=== PATIENT | male | born 1995 | race Hispanic/Latino ===

== ENCOUNTER 2019-06-05 15:15 | Emergency (ER) | payer OTHER ==
--- NOTE | 2019-06-05 15:51 | Emergency Department Report ---
Blank Doc - Documentation Documentation: Sharp pain in lower with rt leg pain. Injury playing soccer . Hit lower back on [place] post. This happened 4 days ago . Denies urinary symptoms, no hematuria. no abdominal pain,fever or chills + TTP l spine. TEMP 99.8 Xray Lspine, UA
--- NOTE | 2019-06-05 16:37 | XRay Report ---
XR spine lumbosacral 2-3V INDICATION / CLINICAL INFORMATION: Low back injury with pain. COMPARISON: None available. FINDINGS: BONES/JOINT(S): No vertebral fracture. No significant degenerative changes. Normal alignment. SOFT TISSUES: No significant abnormality. ADDITIONAL FINDINGS: None. Signer Name: Donte Núñez MD Signed: 06/05/2019 4:33 PM Workstation Name: [id number]
[2019-06-05] MEDS ORDERED: FLEXERIL PO ONE (17:47)
[2019-06-05] MEDS ORDERED: IBUPROFEN PO ONE (17:47)
--- NOTE | 2019-06-05 17:52 | Emergency Department Report ---
ED Back Pain/Injury HPI - General Chief Complaint: Back Pain/Injury Stated Complaint: LOW BACK PAIN Time Seen by Provider: 06/05/19 15:47 Source: patient Limitations: No Limitations - History of Present Illness Initial Comments: Patient is a 23-year-old male presents the emergency room with complaints of middle back pain began on 06/01/19. He states he was playing soccer and went up for a header and fell down and hit his back against the goal post. He denies any numbness, weakness, bowel or bladder incontinence, saddle numbness. He states he has been ambulatory since the incident. He states when he is ambulatory does feel discomfort in his back. He denies any previous back injury. he does not report any urinary sx, hitting his head, LOC, or any other injury. He denies any past medical history or allergies to medications. - Related Data Previous Rx's Medication Instructions Recorded Last Taken Type Cyclobenzaprine [Flexeril 10 MG 10 mg PO QHS PRN #10 tablet 06/05/19 Unknown Rx TAB] Ibuprofen [Motrin 600 MG tab] 600 mg PO Q8H PRN #14 tablet 06/05/19 Unknown Rx Allergies Allergy/AdvReac Type Severity Reaction Status Date / Time latex Allergy Rash Verified 06/05/19 15:18 ED Review of Systems ROS: Stated complaint: LOW BACK PAIN Other details as noted in HPI Comment: All other systems reviewed and negative ED Past Medical Hx - Past Medical History Previous Medical History?: No - Surgical History Past Surgical History?: No - Social History Smoking Status: Never Smoker Substance Use Type: Alcohol - Medications Home Medications: Home Medications Medication Instructions Recorded Confirmed Last Taken Type Cyclobenzaprine [Flexeril 10 MG 10 mg PO QHS PRN #10 tablet 06/05/19 Unknown Rx TAB] Ibuprofen [Motrin 600 MG tab] 600 mg PO Q8H PRN #14 tablet 06/05/19 Unknown Rx ED Physical Exam - General Limitations: No Limitations General appearance: alert, in no apparent distress - Head Head exam: Present: atraumatic, normocephalic - Eye Eye exam: Present: normal appearance, PERRL - ENT ENT exam: Present: mucous membranes moist - Neck Neck exam: Present: normal inspection, full ROM. Absent: tenderness - Respiratory Respiratory exam: Present: normal lung sounds bilaterally. Absent: respiratory distress, wheezes, rales, rhonchi, stridor, chest wall tenderness, accessory muscle use, decreased breath sounds, prolonged expiratory - Cardiovascular Cardiovascular Exam: Present: regular rate, normal rhythm, normal heart sounds. Absent: systolic murmur, diastolic murmur, rubs, gallop - Back Exam Back exam: Present: normal inspection, full ROM, paraspinal tenderness (left sided T-spine paraspinal muscular TTP, no midline C-spine, T-spine, or L-spine tenderness to palpation, no step offs, no deformities). 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 Absent: motor sensory deficit - Psychiatric Psychiatric exam: Present: normal affect, normal mood - Skin Skin exam: Present: warm, dry, intact ED Course Vital Signs 06/05/19 06/05/19 15:41 18:15 Temperature 99.8 F H Pulse Rate 80 70 Respiratory 20 16 Rate Blood Pressure 131/65 Blood Pressure 125/80 [Left] O2 Sat by Pulse 96 99 Oximetry ED Medical Decision Making - Radiology Data Radiology results: report reviewed cc: KALEN ROQUE Fluoro Time In Minutes: XR spine lumbosacral 2-3V INDICATION / CLINICAL INFORMATION: Low back injury with pain. COMPARISON: None available. FINDINGS: BONES/JOINT(S): No vertebral fracture. No significant degenerative changes. Normal alignment. SOFT TISSUES: No significant abnormality. ADDITIONAL FINDINGS: None. Signer Name: Donte Núñez MD Signed: 06/05/2019 4:33 PM Workstation Name: [id number] Transcribed By: FAM Dictated By: Donte Núñez MD Electronically Authenticated By: Donte Núñez MD Signed Date/Time: 06/05/19 9863 - Medical Decision Making Patient is a 23-year-old male presents the emergency room with complaints of middle back pain began on 06/01/19. He states he was playing soccer and went up for a header and fell down and hit his back against the goal post. He denies any numbness, weakness, bowel or bladder incontinence, saddle numbness. He states he has been ambulatory since the incident. He states when he is ambulatory does feel discomfort in his back. He denies any previous back injury. he does not report any urinary sx, hitting his head, LOC, or any other injury. He denies any past medical history or allergies to medications. on exam: left sided T-spine paraspinal muscular TTP, no midline C-spine, T-spine, or L- spine tenderness to palpation, no step offs, no deformities, no focal neuro deficit. XR of the L-spine ordered in triage which shows no acute abnormality. Patient given ibuprofen and Flexeril and the emergency department. Patient did not drive himself here. Patient given prescriptions for Flexeril and ibuprofen advised to take medication as prescribed as needed. Discussed to not drive or operate heavy machinery while taking muscle relaxer due to potential for drowsiness. Use ice, rest, heat, epsom salt bath. Follow-up with a primary care doctor in the next 2-3 days. Return to the emergency room for any new or worsening symptoms. - Differential Diagnosis strain, spondylolysis, spondylolisthesis, sprain, fx, dislocation, DDD Critical care attestation.: If time is entered above; I have spent that time in minutes in the direct care of this critically ill patient, excluding procedure time. ED Disposition Clinical Impression: Fall Qualifiers: Encounter type: initial encounter Qualified Code(s): W19.XXXA - Unspecified fall, initial encounter Back pain Qualifiers: Back pain location: thoracic back pain Chronicity: acute Back pain laterality: left Qualified Code(s): M54.6 - Pain in thoracic spine Disposition: DC-01 TO HOME OR SELFCARE Is pt being admited?: No Does the pt Need Aspirin: No Condition: Stable Instructions: Muscle Strain (ED) Additional Instructions: take medication as prescribed as needed. Discussed to not drive or operate heavy machinery while taking muscle relaxer due to potential for drowsiness. Use ice, rest, heat, epsom salt bath. Follow-up with a primary care doctor in the next 2-3 days, listed several below. Return to the emergency room for any new or worsening symptoms. Prescriptions: Cyclobenzaprine [Flexeril 10 MG TAB] 10 mg PO QHS PRN #10 tablet PRN Reason: Spasms Ibuprofen [Motrin 600 MG tab] 600 mg PO Q8H PRN #14 tablet PRN Reason: Pain Referrals: [facility] [Outside] - 2-3 Days [facility] [Provider Group] - 2-3 Days [facility] [Outside] - 2-3 Days Forms: Work/School Release Form(ED) Time of Disposition: 17:55 Print Language: ITALIAN
[2019-06-05 18:05] LABS: Bilirubin,Urine NEG (Negative); Blood,Urine NEG (Negative); Color,Urine Yellow (Yellow); Mucus,Urine FEW /HPF; Protein,Urine <15 mg/dL mg/dL (Negative); RBC,Urine < 1.0 /HPF (0.0-6.0)
[2019-06-05 18:25] VITALS: BP 125/80
== END 2019-06-05 18:31 | disposition home or self-care (01) ==
LOC: ED 15:15
DX: M54.6 Pain in thoracic spine (principal)
CPT/HCPCS: 72100; 81001